=== PATIENT | male | born 1995 | race Caucasian/White ===

== ENCOUNTER 2022-08-11 20:18 | Inpatient (IN) | payer OTHER ==
[2022-08-11 22:24] LABS: BASO % 1.3 % (0-2.0); HEMATOCRIT 51.8 % (35.4-49); HEMOGLOBIN 16.7 GM/dL (11.7-16.9); LYMPH % 33.6 % (8-40); MCH 27.4 pg (25.7-33.7); MCHC 32.2 g/dl (32.0-35.9); MEAN CELL VOLUME 85.3 fl (80-96); MEAN PLT VOLUME 7.3 fl (7.5-11.1); MONO % 11.6 % (3.8-10.2); NEUT % 46.5 % (42.8-82.8); PLATELET COUNT 261 10^3/uL (134-434); RBC 6.07 M/mm3 (4.00-5.60); RDW 16.3 % (11.9-15.9); WHITE BLOOD COUNT 4.3 K/mm3 (4.0-10.0)
[2022-08-11 22:35] LABS: CHLORIDE 104 mmol/L (98-107); SODIUM 137 mmol/L (136-145)
[2022-08-11 22:39] LABS: ALBUMIN 2.5 g/dl (3.4-5.0); CALCIUM 8.4 mg/dL (8.5-10.1)
[2022-08-11 22:40] LABS: BLOOD UREA NITROGEN 8.9 mg/dL (7-18); CO2 29 mmol/L (21-32); GLUCOSE,RANDOM 91 mg/dL (74-106)
[2022-08-11 22:42] LABS: CREATININE 1.3 mg/dL (0.55-1.3); SGOT/AST 100 U/L (15-37)
[2022-08-11 22:44] LABS: BILIRUBIN,TOTAL 1.3 mg/dL (0.2-1); TOT PROT 6.2 g/dl (6.4-8.2)
[2022-08-11 22:45] LABS: ALK PHOS 48 U/L (45-117)
[2022-08-11 22:47] LABS: N-TERMINAL BNP 7007.2 pg/ml (5-125)
[2022-08-11 22:47] LABS: EPI CELLS 4 /uL (0-25.1); HYALINE CASTS 2 /uL (0-3.1); URINE APPEARANCE CLEAR; URINE BACTERIA 4 /uL (0-1359); URINE BILIRUBIN NEGATIVE (NEGATIVE); URINE COLOR DK YELLOW; URINE GLUCOSE (UA) NEGATIVE (NEGATIVE); URINE KETONE NEGATIVE (NEGATIVE); URINE LEUK ESTERASE NEGATIVE (NEGATIVE); URINE NITRITE NEGATIVE (NEGATIVE); URINE PROTEIN 3+ (NEGATIVE); URINE RBC 32 /uL (0-23.9); URINE UROBILINOGEN 4.0 E.U/dl mg/dL (0.2-1.0); URINE WBC 8 /uL (0-25.8)
[2022-08-11] MEDS ORDERED: FUROSEMIDE 40 MG/4 ML INJECTABLE VIAL IVPUSH ONE (23:08)
[2022-08-11 23:09] LABS: ANION GAP 3 MMOL/L (8-16); SGPT/ALT 36 U/L (13-61)
[2022-08-11 23:52] LABS: ALBUMIN 2.5 g/dl (3.4-5.0); CALCIUM 8.6 mg/dL (8.5-10.1)
[2022-08-11 23:55] LABS: CREATININE 1.2 mg/dL (0.55-1.3)
[2022-08-11 23:57] LABS: BILIRUBIN,TOTAL 1.4 mg/dL (0.2-1); TOT PROT 5.6 g/dl (6.4-8.2)
[2022-08-12] MEDS ORDERED: ACETAMINOPHEN 1000 MG/100 ML BAG IVPB PRN ×2 (03:00→18:58)
[2022-08-12 07:15] LABS: HEMATOCRIT 50.3 % (35.4-49); HEMOGLOBIN 16.3 GM/dL (11.7-16.9); MCH 27.6 pg (25.7-33.7); MCHC 32.3 g/dl (32.0-35.9); MEAN CELL VOLUME 85.3 fl (80-96); MEAN PLT VOLUME 7.9 fl (7.5-11.1); PLATELET COUNT 260 10^3/uL (134-434); RDW 15.9 % (11.9-15.9)
[2022-08-12 07:31] LABS: ALBUMIN 2.6 g/dl (3.4-5.0); BLOOD UREA NITROGEN 8.7 mg/dL (7-18); CALCIUM 8.8 mg/dL (8.5-10.1)
[2022-08-12 07:34] LABS: CREATININE 1.2 mg/dL (0.55-1.3)
[2022-08-12 07:36] LABS: BILIRUBIN,TOTAL 1.6 mg/dL (0.2-1); TOT PROT 5.8 g/dl (6.4-8.2)
[2022-08-12] MEDS ORDERED: ENOXAPARIN NA (PORCINE) 40 MG/0.4 ML DISP.SYRIN SQ ONE (09:08)
[2022-08-12] MEDS ORDERED: FUROSEMIDE 40 MG/4 ML INJECTABLE VIAL ONE (09:09)
[2022-08-12 09:44] LABS: SYPHILIS W/ RPR CONF NON-REACTIVE (NONREACTIVE)
[2022-08-12] MEDS ORDERED: FUROSEMIDE 40 MG/4 ML INJECTABLE VIAL IVPUSH SCH (10:00)
[2022-08-12] MEDS ORDERED: ENOXAPARIN NA (PORCINE) 40 MG/0.4 ML DISP.SYRIN SQ SCH (10:00)
[2022-08-12 17:10] VITALS: BMI 61.0
[2022-08-12] MEDS: ENOXAPARIN NA (PORCINE) 40 MG/0.4 ML DISP.SYRIN SQ SCH (21:49)
[2022-08-13 08:26] LABS: CALCIUM 8.9 mg/dL (8.5-10.1)
[2022-08-13 08:27] LABS: ALBUMIN 2.7 g/dl (3.4-5.0); BLOOD UREA NITROGEN 8.4 mg/dL (7-18)
[2022-08-13 08:30] LABS: CREATININE 1.3 mg/dL (0.55-1.3)
[2022-08-13 08:31] LABS: BILIRUBIN,TOTAL 1.8 mg/dL (0.2-1); TOT PROT 6.2 g/dl (6.4-8.2)
[2022-08-13 08:42] LABS: HEMOGLOBIN 16.9 GM/dL (11.7-16.9); MCH 27.4 pg (25.7-33.7); MCHC 31.9 g/dl (32.0-35.9); MEAN CELL VOLUME 85.9 fl (80-96); MEAN PLT VOLUME 7.7 fl (7.5-11.1); PLATELET COUNT 264 10^3/uL (134-434); RBC 6.17 M/mm3 (4.00-5.60); RDW 17.2 % (11.9-15.9); WHITE BLOOD COUNT 5.4 K/mm3 (4.0-10.0)
[2022-08-13] MEDS: FUROSEMIDE 40 MG/4 ML INJECTABLE VIAL IVPUSH SCH (09:13)
[2022-08-13] MEDS: ENOXAPARIN NA (PORCINE) 40 MG/0.4 ML DISP.SYRIN SQ SCH ×2 (09:13→22:38)
[2022-08-13 11:22] LABS: ANISOCYTOSIS 0; MACROCYTOSIS 0
[2022-08-13] MEDS ORDERED: CARVEDILOL 3.125 MG TABLET (FP) PO ONE (14:03)
[2022-08-13] MEDS: AMPICILLIN NA/SULBACTAM NA 1.5 GM in SODIUM CHLORIDE 100 ML IVPB SCH ×2 (16:02→22:38)
[2022-08-13 17:00] LABS: CHOLESTEROL 168 mg/dL (50-200); TRIGLYCERIDES 144 mg/dL (0-150)
[2022-08-13 17:01] LABS: LDL CHOLESTEROL (ONLY SJRH) 108 mg/dL (5-100)
[2022-08-13 17:03] LABS: HDL CHOLESTEROL 32 mg/dL (40-60)
[2022-08-13] MEDS: SACUBITRIL/VALSARTAN 24 MG-26 MG TABLET PO SCH (22:38)
[2022-08-13] MEDS: CARVEDILOL 3.125 MG TABLET (FP) PO SCH (22:38)
[2022-08-14] MEDS: AMPICILLIN NA/SULBACTAM NA 1.5 GM in SODIUM CHLORIDE 100 ML IVPB SCH ×3 (03:57→16:17)
[2022-08-14 07:33] LABS: HEMATOCRIT 52.2 % (35.4-49); HEMOGLOBIN 16.2 GM/dL (11.7-16.9); MCH 26.8 pg (25.7-33.7); MEAN CELL VOLUME 86.3 fl (80-96); MEAN PLT VOLUME 7.9 fl (7.5-11.1); PLATELET COUNT 250 10^3/uL (134-434); RBC 6.04 M/mm3 (4.00-5.60); RDW 16.9 % (11.9-15.9); WHITE BLOOD COUNT 5.1 K/mm3 (4.0-10.0)
[2022-08-14 07:57] LABS: CALCIUM 8.3 mg/dL (8.5-10.1)
[2022-08-14 07:58] LABS: ALBUMIN 2.5 g/dl (3.4-5.0); BLOOD UREA NITROGEN 9.4 mg/dL (7-18); MAGNESIUM 1.7 mg/dL (1.8-2.4)
[2022-08-14 08:01] LABS: CREATININE 1.2 mg/dL (0.55-1.3); PHOSPHOROUS 4.3 mg/dL (2.5-4.9)
[2022-08-14 08:02] LABS: BILIRUBIN,TOTAL 1.2 mg/dL (0.2-1); TOT PROT 5.7 g/dl (6.4-8.2)
[2022-08-14] MEDS: ENOXAPARIN NA (PORCINE) 40 MG/0.4 ML DISP.SYRIN SQ SCH ×2 (10:56→21:26)
[2022-08-14] MEDS: FUROSEMIDE 40 MG/4 ML INJECTABLE VIAL IVPUSH SCH (10:56)
[2022-08-14] MEDS: SACUBITRIL/VALSARTAN 24 MG-26 MG TABLET PO SCH ×2 (10:56→21:26)
[2022-08-14] MEDS: CARVEDILOL 3.125 MG TABLET (FP) PO SCH (10:57)
[2022-08-14 14:06] LABS: COXSACKIE A16 IGG Negative titer (Neg:<1:100); COXSACKIE A16 IGM Negative titer (Neg:<1:10); COXSACKIE A24 IGM Negative titer (Neg:<1:10); COXSACKIE A7 IGG Negative titer (Neg:<1:100); COXSACKIE A7 IGM Negative titer (Neg:<1:10); COXSACKIE A9 IGM Negative titer (Neg:<1:10)
[2022-08-14] MEDS ORDERED: CARVEDILOL 3.125 MG TABLET (FP) PO ONE ×2 (15:48→17:30)
[2022-08-14] MEDS ORDERED: CLINDAMYCIN 300 MG PREMIX IVPB 300 MG/50 ML BAG IVPB ONE (16:00)
[2022-08-14] MEDS ORDERED: AMPICILLIN NA/SULBACTAM NA 1.5 GM VIAL ONE (16:08)
[2022-08-14] MEDS: SPIRONOLACTONE 25 MG TABLET PO SCH (16:21)
[2022-08-14] MEDS ORDERED: MAGNESIUM SULFATE IN WATER 2 GM/50 ML IVPB IVPB ONE (16:30)
[2022-08-14] MEDS: CARVEDILOL 6.25 MG TABLET (FP) PO SCH (21:26)
[2022-08-15 07:34] LABS: HEMATOCRIT 53.6 % (35.4-49); HEMOGLOBIN 16.9 GM/dL (11.7-16.9); MCH 27.3 pg (25.7-33.7); MCHC 31.5 g/dl (32.0-35.9); MEAN CELL VOLUME 86.6 fl (80-96); MEAN PLT VOLUME 7.5 fl (7.5-11.1); PLATELET COUNT 220 10^3/uL (134-434); RBC 6.19 M/mm3 (4.00-5.60); RDW 16.1 % (11.9-15.9); WHITE BLOOD COUNT 4.6 K/mm3 (4.0-10.0)
[2022-08-15 07:54] LABS: CALCIUM 8.5 mg/dL (8.5-10.1)
[2022-08-15 07:55] LABS: ALBUMIN 2.4 g/dl (3.4-5.0); BLOOD UREA NITROGEN 8.7 mg/dL (7-18); MAGNESIUM 1.8 mg/dL (1.8-2.4)
[2022-08-15 07:57] LABS: CREATININE 1.1 mg/dL (0.55-1.3); PHOSPHOROUS 4.3 mg/dL (2.5-4.9)
[2022-08-15 07:58] LABS: BILIRUBIN,TOTAL 1.2 mg/dL (0.2-1)
[2022-08-15 07:59] LABS: TOT PROT 5.6 g/dl (6.4-8.2)
[2022-08-15 08:54] LABS: HIV INTERPRETATION NEGATIVE (NEGATIVE)
[2022-08-15] MEDS: SPIRONOLACTONE 25 MG TABLET PO SCH (09:10)
[2022-08-15] MEDS: SACUBITRIL/VALSARTAN 24 MG-26 MG TABLET PO SCH (09:10)
[2022-08-15] MEDS: CARVEDILOL 6.25 MG TABLET (FP) PO SCH ×2 (09:10→21:56)
[2022-08-15] MEDS: FUROSEMIDE 40 MG/4 ML INJECTABLE VIAL IVPUSH SCH ×2 (09:10→17:37)
[2022-08-15] MEDS: ENOXAPARIN NA (PORCINE) 40 MG/0.4 ML DISP.SYRIN SQ SCH ×2 (09:10→21:56)
[2022-08-15 14:05] LABS: ARTERIAL BLD GAS O2 SATURATION 89.6 % (95-98); ARTERIAL BLOOD GAS BASE EXCESS 9.6 mmol/L (-2-2); ARTERIAL BLOOD GAS PO2 62.8 mmHg (80-100); ARTERIAL BLOOD GAS pH 7.334 (7.350-7.450)
[2022-08-15 14:09] LABS: ALLENS TEST POSITIVE
[2022-08-15] MEDS ORDERED: FUROSEMIDE 40 MG/4 ML INJECTABLE VIAL IVPUSH SCH (17:00)
[2022-08-15] MEDS: NYSTATIN 100000 UNIT/GM TOPICAL OINTMENT 15 GM TUBE TP SCH ×2 (17:38→21:56)
[2022-08-15 21:07] LABS: ATYPICAL pANCA <1:20 titer (Neg:<1:20); C-ANCA <1:20 titer (Neg:<1:20)
[2022-08-15] MEDS: SACUBITRIL/VALSARTAN 49 MG-51 MG TABLET PO SCH (21:56)
[2022-08-16 08:27] LABS: HEMATOCRIT 55.8 % (35.4-49); HEMOGLOBIN 17.7 GM/dL (11.7-16.9); MCH 27.4 pg (25.7-33.7); MCHC 31.7 g/dl (32.0-35.9); MEAN CELL VOLUME 86.6 fl (80-96); MEAN PLT VOLUME 7.8 fl (7.5-11.1); PLATELET COUNT 246 10^3/uL (134-434); RBC 6.45 M/mm3 (4.00-5.60); RDW 17.2 % (11.9-15.9); WHITE BLOOD COUNT 4.6 K/mm3 (4.0-10.0)
[2022-08-16 09:51] LABS: ALBUMIN 2.8 g/dl (3.4-5.0); MAGNESIUM 1.8 mg/dL (1.8-2.4)
[2022-08-16 09:54] LABS: CREATININE 1.3 mg/dL (0.55-1.3); PHOSPHOROUS 4.2 mg/dL (2.5-4.9)
[2022-08-16 09:56] LABS: BILIRUBIN,TOTAL 1.3 mg/dL (0.2-1); TOT PROT 6.4 g/dl (6.4-8.2)
[2022-08-16] MEDS: CARVEDILOL 6.25 MG TABLET (FP) PO SCH ×2 (10:18→21:52)
[2022-08-16] MEDS: ENOXAPARIN NA (PORCINE) 40 MG/0.4 ML DISP.SYRIN SQ SCH ×2 (10:18→21:53)
[2022-08-16] MEDS: SPIRONOLACTONE 25 MG TABLET PO SCH (10:18)
[2022-08-16] MEDS: NYSTATIN 100000 UNIT/GM TOPICAL OINTMENT 15 GM TUBE TP SCH ×2 (10:20→21:54)
[2022-08-16 10:22] LABS: BLOOD UREA NITROGEN 9.2 mg/dL (7-18)
[2022-08-16] MEDS: SACUBITRIL/VALSARTAN 49 MG-51 MG TABLET PO SCH ×2 (10:27→21:52)
[2022-08-16] MEDS: FUROSEMIDE 40 MG/4 ML INJECTABLE VIAL IVPUSH SCH ×2 (11:25→12:00)
[2022-08-16 11:37] LABS: ARTERIAL BLD GAS O2 SATURATION 93.2 % (95-98); ARTERIAL BLOOD GAS BASE EXCESS 9.3 mmol/L (-2-2); ARTERIAL BLOOD GAS PO2 69.9 mmHg (80-100); ARTERIAL BLOOD GAS pH 7.379 (7.350-7.450)
[2022-08-16 11:42] LABS: ALLENS TEST POSITIVE
[2022-08-16] MEDS ORDERED: FUROSEMIDE 40 MG/4 ML INJECTABLE VIAL IVPUSH SCH (17:00)
[2022-08-17 07:33] LABS: HEMATOCRIT 51.6 % (35.4-49); HEMOGLOBIN 16.3 GM/dL (11.7-16.9); MCH 27.5 pg (25.7-33.7); MCHC 31.5 g/dl (32.0-35.9); MEAN CELL VOLUME 87.2 fl (80-96); MEAN PLT VOLUME 7.9 fl (7.5-11.1); PLATELET COUNT 224 10^3/uL (134-434); RBC 5.92 M/mm3 (4.00-5.60); RDW 16.7 % (11.9-15.9); WHITE BLOOD COUNT 4.8 K/mm3 (4.0-10.0)
[2022-08-17 08:05] LABS: BLOOD UREA NITROGEN 10.2 mg/dL (7-18); MAGNESIUM 1.5 mg/dL (1.8-2.4)
[2022-08-17 08:07] LABS: CALCIUM 8.4 mg/dL (8.5-10.1)
[2022-08-17 08:08] LABS: ALBUMIN 2.5 g/dl (3.4-5.0); CREATININE 1.2 mg/dL (0.55-1.3); PHOSPHOROUS 4.5 mg/dL (2.5-4.9)
[2022-08-17 08:09] LABS: BILIRUBIN,TOTAL 1.2 mg/dL (0.2-1); TOT PROT 5.9 g/dl (6.4-8.2)
[2022-08-17] MEDS: CARVEDILOL 12.5 MG TABLET (FP) PO SCH ×2 (09:33→21:13)
[2022-08-17] MEDS: SACUBITRIL/VALSARTAN 49 MG-51 MG TABLET PO SCH ×2 (09:33→21:13)
[2022-08-17] MEDS: ENOXAPARIN NA (PORCINE) 40 MG/0.4 ML DISP.SYRIN SQ SCH ×2 (09:33→21:13)
[2022-08-17] MEDS: SPIRONOLACTONE 25 MG TABLET PO SCH (09:34)
[2022-08-17] MEDS: NYSTATIN 100000 UNIT/GM TOPICAL OINTMENT 15 GM TUBE TP SCH ×2 (09:34→21:19)
[2022-08-17] MEDS: FUROSEMIDE 40 MG/4 ML INJECTABLE VIAL IVPUSH SCH (09:34)
[2022-08-17] MEDS ORDERED: MAGNESIUM SULF 50% (8.12 MEQ/2 ML-1 GM VIAL) IVPB ONE (13:59)
[2022-08-18 08:49] LABS: CALCIUM 8.7 mg/dL (8.5-10.1)
[2022-08-18 08:50] LABS: ALBUMIN 2.5 g/dl (3.4-5.0); BLOOD UREA NITROGEN 10.9 mg/dL (7-18); MAGNESIUM 1.8 mg/dL (1.8-2.4)
[2022-08-18 08:53] LABS: PHOSPHOROUS 4.5 mg/dL (2.5-4.9)
[2022-08-18 08:54] LABS: BILIRUBIN,TOTAL 1.1 mg/dL (0.2-1)
[2022-08-18 08:55] LABS: TOT PROT 5.6 g/dl (6.4-8.2)
[2022-08-18] MEDS: SPIRONOLACTONE 25 MG TABLET PO SCH (09:29)
[2022-08-18] MEDS: CARVEDILOL 12.5 MG TABLET (FP) PO SCH ×2 (09:29→21:17)
[2022-08-18] MEDS: FUROSEMIDE 40 MG/4 ML INJECTABLE VIAL IVPUSH SCH (09:29)
[2022-08-18] MEDS: SACUBITRIL/VALSARTAN 49 MG-51 MG TABLET PO SCH ×2 (09:29→21:40)
[2022-08-18] MEDS: ENOXAPARIN NA (PORCINE) 40 MG/0.4 ML DISP.SYRIN SQ SCH ×2 (09:29→21:17)
[2022-08-18] MEDS: NYSTATIN 100000 UNIT/GM TOPICAL OINTMENT 15 GM TUBE TP SCH ×2 (09:30→21:18)
[2022-08-18 09:52] VITALS: RESP 20
[2022-08-18 21:54] VITALS: BP 121/66; PULSE 82; TEMP 98.7
[2022-08-19] MEDS ORDERED: FUROSEMIDE 40 MG/4 ML INJECTABLE VIAL IVPUSH SCH (06:00)
== END 2022-08-18 23:36 | disposition short-term general hospital (02) | DRG 194 ==
LOC: JER 20:18 → JERBED 08-12 00:56 → J4W 08-12 16:42
PROVIDERS: ADMIT Internal Medicine
DX: I13.0 Hypertensive heart and chronic kidney disease with heart failure and stage 1 through stage 4 chronic kidney disease, or unspecified chronic kidney disease (principal); I42.0 Dilated cardiomyopathy; I31.3 Pericardial effusion (noninflammatory); R73.03 Prediabetes; N50.82 Scrotal pain; I86.1 Scrotal varices; E88.09 Other disorders of plasma-protein metabolism, not elsewhere classified; N17.9 Acute kidney failure, unspecified; E87.2 Acidosis; K80.80 Other cholelithiasis without obstruction; E66.01 Morbid (severe) obesity due to excess calories; Z68.43 Body mass index [BMI] 50.0-59.9, adult; R80.9 Proteinuria, unspecified; E87.70 Fluid overload, unspecified; E78.5 Hyperlipidemia, unspecified; N18.9 Chronic kidney disease, unspecified; I50.21 Acute systolic (congestive) heart failure; R79.89 Other specified abnormal findings of blood chemistry; R60.0 Localized edema; E83.42 Hypomagnesemia; E03.9 Hypothyroidism, unspecified; G47.33 Obstructive sleep apnea (adult) (pediatric); R09.02 Hypoxemia
CPT/HCPCS: 36415; 36600; 71045-TC-FY; 71046-TC-FY; 74176-TC; 76775-TC; 76870-TC; 80053; 80061; 81003; 82570; 82728; 82803; 83036; 83520; 83735; 83880; 84100; 84155; 84156; 84165; 84439; 84443; 84484; 85025; 85027; 85651; 86038; 86140; 86160; 86162; 86225; 86256; 86658; 86704; 86780; 86803; 87086; 87340; 87389; 87517; 93005; 93010; 93306-TC; 93970-TC; 94660; 99285-25; C9803-CS; U0003; U0005